=== PATIENT | female | born 1950 | race Caucasian/White ===

== ENCOUNTER → 2024-08-01 10:44 | Outpatient (REF) | payer OTHER, SELFPAY | LOC: RCS 10:44 | PROVIDERS: ATTENDING PHYSICIAN Nurse Practitioner; FAMILY PHYSICIAN Physician Assistant Medical | DX: I36.1 Nonrheumatic tricuspid (valve) insufficiency (principal) | CPT/HCPCS: 93306 ==

== ENCOUNTER 2024-11-17 11:25 | Emergency (ER) | payer OTHER, SELFPAY ==
[2024-11-17 11:27] VITALS: BP 164/81
--- NOTE | 2024-11-17 11:47 | ED.GENMED ---
History of Present Illness
General
Chief Complaint: Vaginal Bleeding
Source: patient
Exam Limitations: none
Time Seen by Provider: 11/17/24 11:41
Nursing documentation reviewed up to this point in time: agreed with
History of Present Illness
History of Present Illness:
74-year-old female presents to the ER for evaluation. She reports about a month ago she felt' something slip out of my vagina.' She did see her primary care physician but did not want an exam. She does have an appointment with urogynecology on
December 09. She reports yesterday however she started bleeding and has changed a pad every hour. She is on Eliquis for history of a flutter and has of high blood pressure and high cholesterol. She denies any lightheaded dizziness. Denies any
abdominal pain.
Past History
Past History
ED Past Medical History: Arrthythmia (Atrial fibrillation), CVA (TIA), HTN and Hypercholesterolemia
ED Past Surgical History: Appendectomy
Social History
Tobacco: Non-smoker
Alcohol: None
Drug: None
Personal:
Living: with family
Employment: Employed
Review of Systems
Review of Systems
Allergies reviewed?: Yes
All Other Systems: ROS reviewed and negative except as documented in HPI and ROS
Phy Exam
General Physical Exam
General Presentation: no apparent distress
General age: appears stated age
General Skin: warm and dry
General Mental: alert
General Hydration: appears well hydrated
Gastrointestinal Exam
Gastrointestinal Exam: non tender and soft
Genitourinary Exam Female
Exam Female: other (No active vaginal bleeding, small amount of dried blood in vaginal vault. I am able to visualize the cervix and it does appear that the uterus is protruding unable to visualize part of uterus however no obvious prolapse on
external exam)
Neurological Exam
Neurological Exam: alert and oriented x3
Course
Orders/Labs/Results
Orders:
Orders
11/17/24 11:49
IV Insert/Care/Rem.- Treatment PRN
11/17/24 11:58
Comprehensive Metabolic Panel Urgent
11/17/24 11:59
Complete Blood Count/With Diff Urgent
Abnormal Lab Results
11/17/24 11/17/24
11:58 11:59
Absolute Lymphs (auto) 0.9 L 10^3/uL
(1.2-3.4)
Absolute Monos (auto) 0.7 H 10^3/uL
(0.1-0.6)
Absolute Eos (auto) 1.1 H 10^3/uL
(0-0.7)
Lymphocytes % 12.4 L %
(20.5-51.1)
Eosinophils % 14.5 H %
(0-6)
Chloride 108 H mmol/L
(98-107)
BUN 21 H mg/dl
(7-17)
Total Bilirubin 2.1 H mg/dl
(0.2-1.3)
11/17/24 11:59
11/17/24 11:58
Vital Signs
Initial and Last Documented VS:
Initial Vital Signs
Temp Pulse Resp BP Pulse Ox
97.5 F 58 16 164/81 98
11/17/24 11:27 11/17/24 11:27 11/17/24 11:27 11/17/24 11:27 11/17/24 11:27
Last Documented Vital Signs
Temp Pulse Resp BP Pulse Ox
98.1 F 100 20 153/78 97
11/17/24 13:05 11/17/24 13:05 11/17/24 13:05 11/17/24 13:05 11/17/24 13:05
MDM/Problems Addressed
MDM/Problems Addressed:
As documented patient is a 74-year-old female who has likely a uterine prolapse which occurs intermittently however had vaginal bleeding last night which prompted patient to come to the ER. She has an appointment with urogyn but not until December 09.
She presents awake alert no acute distress she denies any abdominal pain nausea vomiting UTI symptoms. She is afebrile no complaints of fevers at home with a normal white count, and stable hemoglobin.
On external exam there is no obvious prolapse on internal vaginal exam there is small amt dried old blood no active bleeding.
I am able to visualize the cervix the os and part of the uterus.
She is however no acute distress. As documented she is on Eliquis however with stable hemoglobin no active bleeding safe for discharge home.
Case discussed with Dr. Min Hammnod who has an opening November 23 at 9 AM the patient is able to follow-up there. Strict return precautions
*Pulse Oximetry
SaO2: 98
Oxygen Mode of Delivery: Room air
Patient hypoxic: no
*Critical Care Note
Total Time (30-74mins, 75-104mins- exclusive of procedures): Not Applicable
ED Attending Note
-
Portions of this chart may have been created with voice recognition software.� Occasional wrong word or��sound alike� substitutions may have occurred due to the inherent limitations of voice recognition software.
Discharge Plan
Departure
Patient Disposition: Home (Routine Discharge)
Date of Disposition: 11/17/24
Time of Disposition: 14:12
Patient with high blood pressure during this ER visit?: Yes
Condition: Fair
Covid-19: Not Applicable
Discharge Problem:
uterine prolapse, vaginal bleeding
Instructions: BLOOD PRESSURE
Prescriptions:
No Action
multivitamin with folic acid [Tab-A-Gus] 1 TABLET tablet
1 tab PO DAILY
atorvastatin 40 MG tablet
40 mg PO HS
latanoprost 0.005 % Drops
1 drp OPHTHALMIC (EYE) QPM
carvedilol 6.25 mg Tablet
6.25 mg PO BID
ascorbic acid (vitamin C) 500 mg Tablet
500 mg PO DAILY
timolol 0.25 % Drops
1 drp OPHTHALMIC (EYE) BID
cholecalciferol (vitamin D3) 10 mcg (400 unit) Capsule
10 mcg PO DAILY
brimonidine-timolol [Combigan] 0.2-0.5 % Drops
1 drp OPHTHALMIC (EYE) BID
acidophilus-pectin, citrus [Acidophilus Probiotic] 100 million cell-10 mg Capsule
1 cap PO DAILY
Xarelto 20 mg Tablet
20 mg PO DAILY
Dupixent Pen 300 mg/2 mL Pen Injector
300 mg SC Q2W
colchicine 0.6 mg tablet
0.3 mg PO BID 7 Days Qty: 7 0RF
oxycodone 5 mg tablet
5 mg PO Q8H PRN (Reason: Pain) Qty: 6 0RF
Referrals:
Breana Yi PA-C [Family Provider, Family Practice]
Min Hammond MD [Active, Urology]
Activity Restrictions/Additional Instructions:
As documented symptoms are consistent with likely uterine prolapse:
Please follow-up with URO/critical care cns Dr. Min Hammond As scheduled NOVEMBER 23 9 am
Return if any worsening of symptoms.
Interventions
Interventions:
*Risk Screen - Suicide Last Done: 11/17/24 11:30
*General Assessment Last Done: 11/17/24 12:03
*Neglect/Abuse Screening Last Done: 11/17/24 11:27
*ED- Fall Risk Assessment Last Done: 11/17/24 12:03
*ED COVID-19 Vaccine History Last Done: 11/17/24 12:03
ED-Female Genitourinary Assessment Last Done: 11/17/24 12:03
Discharge Date and Time
Print Language: DOMINICAN
[2024-11-17 12:15] LABS: Hematocrit 41.1 % (37.0-47.0); Hemoglobin 14.2 g/dL (12.0-16.0); Mean Corp Hgb Conc. 34.5 g/dL (33.0-37.0); Mean Corpuscular Volume 87.4 fL (81.0-99.0); Nucleated Red Blood Cells % 0 %; Platelet Count 155 10^3/uL (130-400); Red Cell Dist. Width 13.5 % (11.5-14.5)
[2024-11-17 12:27] LABS: ALT (SGPT) 22 U/L (0-35); AST (SGOT) 27 U/L (14-36); Albumin 4.1 g/dl (3.5-5.0); Alkaline Phosphatase 62 U/L (38-126); Blood Urea Nitrogen 21 mg/dl (7-17); Calcium 9.3 mg/dl (8.4-10.2); Carbon Dioxide 28 mmol/L (22-30); Chloride 108 mmol/L (98-107); Glucose 78 mg/dl (70-99); Potassium 4.5 mmol/L (3.5-5.1); Sodium 140 mmol/L (135-145); Total Protein 6.7 g/dl (6.3-8.2); eGFR > 60.00
[2024-11-17 13:05] VITALS: BP 153/78
== END 2024-11-17 14:25 | disposition home or self-care (01) ==
LOC: EMR 11:25
PROVIDERS: Nurse Practitioner; EMERGENCY PHYSICIAN Student in an Organized Health Care Education/Training Program; FAMILY PHYSICIAN Physician Assistant Medical
DX: N81.4 Uterovaginal prolapse, unspecified (principal); N93.9 Abnormal uterine and vaginal bleeding, unspecified; I48.91 Unspecified atrial fibrillation; I10 Essential (primary) hypertension; E78.00 Pure hypercholesterolemia, unspecified; Z86.73 Personal history of transient ischemic attack (TIA), and cerebral infarction without residual deficits; Z90.49 Acquired absence of other specified parts of digestive tract; Z79.01 Long term (current) use of anticoagulants
CPT/HCPCS: 99283; 80053; 85025

== ENCOUNTER → 2024-12-08 08:46 | Outpatient (REF) | payer OTHER, SELFPAY | LOC: RAD 08:46 | PROVIDERS: ATTENDING PHYSICIAN Obstetrics & Gynecology; FAMILY PHYSICIAN Physician Assistant Medical | DX: N95.2 Postmenopausal atrophic vaginitis (principal) | CPT/HCPCS: 76830; 76856 ==

== ENCOUNTER 2025-02-20 05:48 | Day surgery (SDC) | payer OTHER, SELFPAY ==
[2025-02-13 11:38] LABS: Hematocrit 40.9 % (37.0-47.0); Hemoglobin 13.7 g/dL (12.0-16.0); Mean Corp Hgb Conc. 33.5 g/dL (33.0-37.0); Mean Corpuscular Volume 89.3 fL (81.0-99.0); Platelet Count 183 10^3/uL (130-400); Red Cell Dist. Width 13.5 % (11.5-14.5)
[2025-02-13 11:57] LABS: Blood Urea Nitrogen 17 mg/dl (7-17); Calcium 9.2 mg/dl (8.4-10.2); Carbon Dioxide 28 mmol/L (22-30); Chloride 107 mmol/L (98-107); Glucose 86 mg/dl (70-99); Potassium 4.3 mmol/L (3.5-5.1); Sodium 140 mmol/L (135-145); eGFR > 60.00
[2025-02-13 14:07] VITALS: BMI 22.5
[2025-02-20] VITALS (7 sets, daily range): BP systolic 150–173; BP diastolic 82–88; BMI 22.5
[2025-02-20] MEDS: NORMOSOL-R/PLASMALYTE-A 1000 IV (06:51)
== END 2025-02-20 11:45 | disposition home or self-care (01) ==
LOC: SDS 05:48
PROVIDERS: ATTENDING PHYSICIAN Obstetrics & Gynecology; FAMILY PHYSICIAN Physician Assistant Medical
DX: N81.2 Incomplete uterovaginal prolapse (principal); N39.3 Stress incontinence (female) (male); N32.81 Overactive bladder; N36.41 Hypermobility of urethra
CPT/HCPCS: 57282; 57260; 57288; 36415; 80048; 85027; 86850; 86900; 86901; 93005; A4648; C1771; J1580